=== PATIENT | female | born 1950 | race Caucasian/White ===

== ENCOUNTER → 2018-04-19 22:29 | Outpatient (CLI) | payer OTHER, SELFPAY ==
[2018-04-19 22:39] LABS: Absolute Lymphocyte Count 1.64 X10^3/ul (0.83-4.51); Absolute Neutrophil Count 4.2 X10^3/uL (2.0-7.7); Basophil# 0.05 X10^3/uL; Basophil% 0.7 % (0-1); Eosinophil# 0.15 X10^3/uL; Eosinophils% 2.2 % (0-5); Hematocrit 40.7 % (37-47); Hemoglobin 12.8 g/dl (12.0-15.0); Lymphocyte # 1.64 X10^3/ul (4.0); Mean Corp Hgb Conc 31.4 g/gl (32-36); Mean Corpuscular Volume 92.3 fL (81-99); Mean Platelet Vol. 11.3 fl (6.2-12.0); Monocyte# 0.74 X10^3/uL; Monocyte% 10.8 % (0-10); Neutrophil # 4.24 X10^3/uL (2.7-7.7); Neutrophil % 62.2 % (47-70); Platelet Count 227 K/mm3 (150-450); RBC Distribution Width CV 13.7 % (11.6-14.6); RBC Distribution Width SD 45.2 fl (35.1-43.9); Red Blood Count 4.41 M/mm3 (4.2-5.4); White Blood Count 6.8 K/mm3 (4.4-11.0)
[2018-04-19 22:53] LABS: POSITIVE COUNT NO; POSITIVE DIFFERENTIAL NO; POSITIVE MORPHOLOGY NO
[2018-04-19 22:58] LABS: ALB/GLOB Ratio 0.8 RATIO (0.9-2.4); AST(SGOT) 23 U/L (15-37); Alanine Aminotransfer ALT/SGPT 26 U/L (13-56); Albumin, Serum 3.7 g/dL (3.2-5.0); Alkaline Phosphatase 96 U/L (45-117); Anion Gap 10 (5-15); BUN 29 mg/dL (7-18); BUN/Creat Ratio 27.6 RATIO (10-20); Chloride 103 mmol/L (98-107); Cholesterol 272 mg/dL (200); Creatinine, Serum 1.05 mg/dL (0.55-1.02); EST Glomerular Filtration Rate 55 mL/min (>60); Est Glom Filt Rate - Afr Amer 67 mL/min (>60); Free T3 2.8 pg/mL (2.18-3.98); Globulin 4.4 g/dL (2.2-4.2); Glucose 100 mg/dL (74-106); High Density Lipoprotein 48 mg/dL; Protein, Total 8.1 g/dL (6.4-8.2); Sodium Level 139 mmol/L (136-145); T4 Free Direct 0.93 ng/dL (0.76-1.46); Thyroid Stim Hormone (TSH) 1.89 uIU/mL (0.358-3.74); Triglycerides 231 mg/dL; Very Low Density Lipoprotein 46 mg/dL (5-40)
== END ==
PROVIDERS: Visit Provider Nurse Practitioner
DX: E78.5 Hyperlipidemia, unspecified (principal); R63.5 Abnormal weight gain; F41.9 Anxiety disorder, unspecified
CPT/HCPCS: 80053; 80061; 84439; 84443; 84481; 85025

== ENCOUNTER → 2018-07-30 14:42 | Outpatient (CLI) | payer OTHER, SELFPAY ==
[2018-07-30 12:44] VITALS: BMI 27.6
[2018-07-30 15:09] LABS: Cholesterol 232 mg/dL (200); High Density Lipoprotein 53 mg/dL; Triglycerides 148 mg/dL; Very Low Density Lipoprotein 30 mg/dL (5-40)
== END ==
PROVIDERS: Referring Provider Nurse Practitioner; Visit Provider Nurse Practitioner
DX: E78.2 Mixed hyperlipidemia (principal)
CPT/HCPCS: 80061

== ENCOUNTER → 2019-03-21 | Outpatient (CLI) | payer OTHER, SELFPAY ==
[2019-03-21 16:43] VITALS: BMI 24.6
[2019-03-21 22:10] LABS: Absolute Lymphocyte Count 1.31 X10^3/uL (0.83-4.51); Absolute Neutrophil Count 4.3 X10^3/uL (2.0-7.7); Basophil# 0.05 X10^3/uL; Basophil% 0.8 % (0-1); Eosinophil# 0.15 X10^3/uL; Eosinophils% 2.3 % (0-5); Hematocrit 42.8 % (37-47); Hemoglobin 13.4 g/dL (12.0-15.0); Lymphocyte # 1.31 X10^3/ul (4.0); Lymphocyte % 20.4 % (19-41); Mean Corp Hgb Conc 31.3 g/dL (32-36); Mean Corpuscular Hgb 29.6 pg (27.0-32.0); Mean Corpuscular Volume 94.5 fL (81-99); Mean Platelet Vol. 11.6 fl (6.2-12.0); Monocyte# 0.58 X10^3/uL; NRBC Flagged by Analyzer 0 % (0-5); Neutrophil # 4.32 X10^3/uL (2.7-7.7); Neutrophil % 67.3 % (47-70); Platelet Count 215 K/mm3 (150-450); RBC Distribution Width CV 13.5 % (11.6-14.6); Red Blood Count 4.53 M/mm3 (4.2-5.4); White Blood Count 6.4 K/mm3 (4.4-11.0)
[2019-03-21 22:25] LABS: ALB/GLOB Ratio 0.9 RATIO (0.9-2.4); AST(SGOT) 18 U/L (15-37); Alanine Aminotransfer ALT/SGPT 10 U/L (13-56); Albumin, Serum 3.7 g/dL (3.2-5.0); Alkaline Phosphatase 85 U/L (45-117); Anion Gap 2 (5-15); BUN 33 mg/dL (7-18); BUN/Creat Ratio 29.5 RATIO (10-20); Chloride 105 mmol/L (98-107); Cholesterol 235 mg/dL (200); Creatinine, Serum 1.12 mg/dL (0.55-1.02); EST Glomerular Filtration Rate 51 mL/min (>60); Est Glom Filt Rate - Afr Amer 62 mL/min (>60); Glucose 98 mg/dL (74-106); High Density Lipoprotein 56 mg/dL; Potassium 4.5 mmol/L (3.5-5.1); Protein, Total 7.7 g/dL (6.4-8.2); Sodium Level 139 mmol/L (136-145); Triglycerides 120 mg/dL; Very Low Density Lipoprotein 24 mg/dL (5-40)
== END | disposition home or self-care (01) ==
PROVIDERS: Referring Provider Nurse Practitioner; Visit Provider Nurse Practitioner
DX: I48.91 Unspecified atrial fibrillation (principal)
CPT/HCPCS: 80053; 80061; 85025

== ENCOUNTER → 2019-06-03 00:11 | Outpatient (CLI) | payer MEDICARE, BC, SELFPAY ==
[2019-06-02 21:23] VITALS: BMI 24.6
[2019-06-03 00:58] LABS: Thyroid Stim Hormone (TSH) 1.56 uIU/mL (0.358-3.74)
== END ==
LOC: OLS.AHF 00:11 → LABSPEC 10:45
PROVIDERS: Referring Provider Nurse Practitioner; Visit Provider Nurse Practitioner
DX: E03.9 Hypothyroidism, unspecified (principal)
CPT/HCPCS: 84443

== ENCOUNTER 2020-01-01 18:23 | Emergency (ER) | payer MEDICARE, BC, SELFPAY ==
[2020-01-01 17:36] VITALS: BMI 25.0
[2020-01-01 18:25] VITALS: BP 181/76; PULSE 71; RESP 18; TEMP 36.6; O2SAT 100; BMI 26.1
--- NOTE | 2020-01-01 19:09 | CT_ITS ---
STUDY: CT BRAIN WITHOUT CONTRAST REASON FOR EXAM: Female, 69 years old. DIZZINESS, VERTIGO RADIATION DOSAGE (If Supplied By Facility): CTDIvol = ( 44.99 ) mGy, DLP = ( 748.30 ) mGycm TECHNIQUE: Transaxial CT imaging of the brain was performed without administration of intravenous contrast material. Individualized dose optimization techniques were used for this CT. COMPARISON: No relevant priors. FINDINGS: Normal soft tissue structures. Normal calvarium. Normal size ventricles and extra-axial spaces for the patient''s age. Normal white matter tracts of the cerebral hemispheres. Normal basal ganglia and thalami. Normal brainstem. Normal cerebellum. There is no intracranial hemorrhage. There are no findings of an acute ischemic infarction. Normal visualized paranasal sinuses. CT/Brain/Head without Contrast IMPRESSION: Normal unenhanced CT scan of the brain. Electronically Signed: Gato Scott MD at 20:06 EDT , Service support ,
[2020-01-01 19:20] VITALS: BP 131/81; BP 145/90; BP 146/64; PULSE 65; PULSE 70; PULSE 78
[2020-01-01 19:44] LABS: Absolute Lymphocyte Count 1.01 X10^3/uL (0.83-4.51); Absolute Neutrophil Count 6.9 X10^3/uL (2.0-7.7); Basophil# 0.03 X10^3/uL; Basophil% 0.4 % (0-1); Eosinophil# 0.05 X10^3/uL; Eosinophils% 0.6 % (0-5); Lymphocyte # 1.01 X10^3/ul (4.0); Lymphocyte % 11.9 % (19-41); Mean Corp Hgb Conc 31.1 g/dL (32-36); Mean Corpuscular Hgb 29.2 pg (27.0-32.0); Mean Corpuscular Volume 93.9 fL (81-99); Mean Platelet Vol. 11.9 fl (6.2-12.0); Monocyte# 0.49 X10^3/uL; Monocyte% 5.8 % (0-10); NRBC Flagged by Analyzer 0 % (0-5); Neutrophil # 6.87 X10^3/uL (2.7-7.7); Neutrophil % 80.8 % (47-70); Platelet Count 220 K/mm3 (150-450); RBC Distribution Width CV 13.2 % (11.6-14.6); RBC Distribution Width SD 45.5 fl (35.1-43.9); Red Blood Count 4.79 M/mm3 (4.2-5.4); White Blood Count 8.5 K/mm3 (4.4-11.0)
[2020-01-01 20:03] LABS: ALB/GLOB Ratio 0.8 RATIO (0.9-2.4); AST(SGOT) 19 U/L (15-37); Alanine Aminotransfer ALT/SGPT 17 U/L (13-56); Albumin, Serum 3.8 g/dL (3.2-5.0); Alkaline Phosphatase 93 U/L (45-117); Anion Gap 7 (5-15); BUN 35 mg/dL (7-18); BUN/Creat Ratio 31.2 RATIO (10-20); Calcium,Total 9.3 mg/dL (8.5-10.1); Chloride 106 mmol/L (98-107); Creatinine, Serum 1.12 mg/dL (0.55-1.02); EST Glomerular Filtration Rate 51 mL/min (>60); Est Glom Filt Rate - Afr Amer 62 mL/min (>60); Estimated Creatinine Clearance 44.38 ml/min; Globulin 4.5 g/dL (2.2-4.2); Glucose 144 mg/dL (74-106); Protein, Total 8.3 g/dL (6.4-8.2); Sodium Level 140 mmol/L (136-145)
--- NOTE | 2020-01-01 20:48 | ED.VIS.GEN ---
History of Present Illness Chief Complaint: Dizziness Onset: Today Narrative: Patient is brought to the emergency room for the evaluation of vertigo. Patient states she had this in the past when she was working for [employer]. She had an episode of it on the of which she states that the room was spinning. She had it again this morning when she went to get up out of bed. She states that she is feeling better right now but she went and saw primary care physician who noticed that she had miosis of the right eye and wanted her to come to the emergency department to be seen. Patient has no headache. She denies any visual changes. Specifically visual field cuts or blurry vision or double vision. She denies putting anything in the eye or any new medications. She has no temporal artery tenderness. The eyes not injected. No arm or leg symptoms. Past Medical History - Allergies and Home Meds Allergies/Adverse Reactions: Allergies diazepam [From Valium] Allergy (Verified 01/01/20 18:28) Other HALLUCINATE morphine Allergy (Verified 01/01/20 18:28) Other HALLUCINATION rosuvastatin calcium [From Crestor] Allergy (Verified 01/01/20 18:28) Other MUSCLE PAIN Primary Care Physician: Cory Rosales MD [STAFF PHYSICIAN] - (if you want to see opthamology) Flavio Dodd MD [STAFF PHYSICIAN] - (for ENT ) Smoking Status: Never smoker Review of Systems General: Denies: Chills, Fever, Sweats Eyes: Denies: Visual changes - left, Visual changes - right, Visual changes - bilaterally, Blurred vision - left, Blurred vision - right, Blurred Vision - bilaterally, Diplopia ENT: Denies: Rhinorrhea, Sore throat Cardiovascular: Denies: Chest pain, Palpitations Respiratory: Denies: Dyspnea, Cough, Dyspnea on exertion Gastrointestinal: Denies: Abdominal pain, Nausea, Vomiting, Diarrhea, Melena, Hematochezia Genitourinary: Denies: Dysuria, Hematuria, Frequency Musculoskeletal: Denies: Back pain, Extremity Pain Skin: Denies: Rash, Wounds Neurological: Reports: - - Sensation of room spinning now resolved. Denies: Headache, Weakness, Numbness Physical Exam Vital Signs/Narrative: Vital Signs Temp Pulse Pulse Pulse Pulse Resp BP 01/01/20 19:20 65 70 78 01/01/20 18:25 97.9 F 71 18 181/76 H BP BP BP Pulse Ox 01/01/20 19:20 146/64 H 145/90 H 131/81 H 01/01/20 18:25 100 Inital Vital Signs reviewed: Yes General: Well nourished, Well developed, No Acute Distress Head: Normocephalic, Atraumatic Eyes: Perrl, EOMI, - - The left pupil appears to be 4 mm and reactive. The right eye appears to be 2 mm and reactive. ENT: Moist mucous membranes, No rhinorrhea Neck: Supple, Nontender Cardiovascular: Regular rate, Regular rhythm, No murmurs Respiratory: No distress, CTA bilaterally, Chest nontender Abdomen: Soft, Nontender, Nondistended, Normal bowel sounds Back: Nontender, Normal Inspection Extremities: Nontender, No edema Skin: Normal color, No rash Neurological: Alert, Oriented x3, Cranial nerves II-XII grossly intact, Normal Strength, Normal Sensation Psychological: Normal affect, Normal Mood Diagnostic/Tx/Re-eval Clinical Impression(s) from Imaging Studies Brain CT 01/01/20 19:09 IMPRESSION: Normal unenhanced CT scan of the brain. Electronically Signed: Gato Scott MD at 20:06 EDT , Service support , Laboratory Last Values WBC 8.5 K/mm3 (4.4-11.0) 01/01/20 19:28 RBC 4.79 M/mm3 (4.2-5.4) 01/01/20 19:28 Hgb 14.0 g/dL (12.0-15.0) 01/01/20 19:28 Hct 45.0 % (37-47) 01/01/20 19:28 MCV 93.9 fL (81-99) 01/01/20 19:28 MCH 29.2 pg (27.0-32.0) 01/01/20 19:28 MCHC 31.1 g/dL (32-36) L 01/01/20 19:28 RDW Std Deviation 45.5 fl (35.1-43.9) H 01/01/20 19:28 RDW Coeff of [place] 13.2 % (11.6-14.6) 01/01/20 19:28 Plt Count 220 K/mm3 (150-450) 01/01/20 19: MPV 11.9 fl (6.2-12.0) 01/01/20 19:28 Immature Gran % (Auto) 0.500 % (0.0-0.9) 01/01/20: Neut % (Auto) 80.8 % (47-70) H 01/01/20:28 Lymph % (Auto) 11.9 % (19-41) L 01/01/20:28 [place] % (Auto) 5.8 % (0-10) 01/01/20:28 Eos % (Auto) 0.6 % (0-5) 01/01/20: Baso % (Auto) 0.4 % (0-1) 01/01/20: Absolute Neuts (auto) 6.9 X10^3/uL (2.0-7.7) 01/01/20: Absolute Lymphs (auto) 1.01 X10^3/uL (0.83-4.51) 01/01/20 19: Nucleated RBC % 0 % (0-5) 01/01/20 19: Sodium 140 mmol/L (136-145) 01/01/20: Potassium 4.0 mmol/L (3.5-5.1) 01/01/20: Chloride 106 mmol/L (98-107) 01/01/20: Carbon Dioxide 27.0 mmol/L (21.0-32.0) 01/01/20:28 Anion Gap 7 (5-15) 01/01/20 19:28 BUN 35 mg/dL (7-18) H 01/01/20 19:28 Creatinine 1.12 mg/dL (0.55-1.02) H 01/01/20 19:28 Estim Creat Clear Calc 44.38 ml/min 01/01/20: Est GFR (MDRD) Af Amer 62 mL/min (>60) 01/01/20: Est GFR (MDRD) Non-Af 51 mL/min (>60) L 01/01/20: BUN/Creatinine Ratio 31.2 RATIO (10-20) H 01/01/20 19:28 Glucose 144 mg/dL (74-106) H 01/01/20 19:28 Calcium 9.3 mg/dL (8.5-10.1) 01/01/20 19:28 Total Bilirubin 0.20 mg/dL (0.20-1.00) 01/01/20 19:28 AST 19 U/L (15-37) 01/01/20 19:28 ALT 17 U/L (13-56) 01/01/20 19:28 Alkaline Phosphatase 93 U/L (45-117) 01/01/20 19:28 Total Protein 8.3 g/dL (6.4-8.2) H 01/01/20 19:28 Albumin 3.8 g/dL (3.2-5.0) 01/01/20 19: Globulin 4.5 g/dL (2.2-4.2) H 01/01/20 19:28 Albumin/Globulin Ratio 0.8 RATIO (0.9-2.4) L 01/01/20 19:28 - Medical Decision Making CT the brain was normal. CBC and BMP are normal. Patient is currently asymptomatic. And have her follow-up with ophthalmology if her symptoms do not resolve. She can follow-up with ENT for the vertigo. She states she cannot take Valium. She has been reluctant to take meclizine. ED Disposition - Plan for ED Patient: Disposition: Home or Assisted Living Diagnosis: Vertigo, Miosis Instructions: ED Vertigo Unspecified Prescriptions: Ondansetron [Zofran Odt] 4 mg PO Q6H PRN PRN #20 tab PRN Reason: Nausea Transmission Status: Received by [id number] Referrals: Flavio Dodd MD [STAFF PHYSICIAN] - (for ENT ) Cory Rosales MD [STAFF PHYSICIAN] - (if you want to see opthamology)
[2020-01-01 20:50] VITALS: BP 151/63; PULSE 63; RESP 16; O2SAT 97
== END 2020-01-01 20:52 | disposition home or self-care (01) ==
PROVIDERS: Emergency Provider Emergency Medicine; PCP Nurse Practitioner
DX: R42 Dizziness and giddiness (principal); H57.03 Miosis; Z79.82 Long term (current) use of aspirin; Z79.899 Other long term (current) drug therapy
CPT/HCPCS: 70450; 80053; 85025; 99285; A4216

== ENCOUNTER → 2021-04-28 | Outpatient (CLI) | payer MEDICARE, BC, SELFPAY ==
[2021-04-28 22:15] LABS: Absolute Lymphocyte Count 1.44 X10^3/uL (0.83-4.51); Basophil# 0.04 X10^3/uL; Basophil% 0.8 % (0-1); Eosinophil# 0.14 X10^3/uL; Eosinophils% 2.7 % (0-5); Hematocrit 42.1 % (37-47); Hemoglobin 13.1 g/dL (12.0-15.0); Lymphocyte # 1.44 X10^3/ul (0.83-4.51); Lymphocyte % 28.1 % (19-41); Mean Corp Hgb Conc 31.1 g/dL (32-36); Mean Corpuscular Hgb 29.3 pg (27.0-32.0); Mean Corpuscular Volume 94.2 fL (81-99); Mean Platelet Vol. 11.5 fl (6.2-12.0); Monocyte# 0.52 X10^3/uL; Monocyte% 10.2 % (0-10); NRBC Flagged by Analyzer 0 % (0-5); Neutrophil # 2.97 X10^3/uL (2.7-7.7); Platelet Count 221 K/mm3 (150-450); RBC Distribution Width CV 13.1 % (11.6-14.6); RBC Distribution Width SD 44.8 fl (35.1-43.9); Red Blood Count 4.47 M/mm3 (4.2-5.4); White Blood Count 5.1 K/mm3 (4.4-11.0)
[2021-04-28 22:46] LABS: ALB/GLOB Ratio 0.9 RATIO (0.9-2.4); AST(SGOT) 20 U/L (15-37); Alanine Aminotransfer ALT/SGPT 11 U/L (13-56); Albumin, Serum 3.6 g/dL (3.2-5.0); Alkaline Phosphatase 97 U/L (45-117); Anion Gap 9 (5-15); BUN 24 mg/dL (7-18); BUN/Creat Ratio 19.8 RATIO (10-20); Chloride 104 mmol/L (98-107); Cholesterol 236 mg/dL (200); Creatinine, Serum 1.21 mg/dL (0.55-1.02); EST Glomerular Filtration Rate 47 mL/min (>60); Est Glom Filt Rate - Afr Amer 56 mL/min (>60); Globulin 4.2 g/dL (2.2-4.2); Glucose 106 mg/dL (74-106); High Density Lipoprotein 57 mg/dL; Potassium 4.3 mmol/L (3.5-5.1); Protein, Total 7.8 g/dL (6.4-8.2); Sodium Level 140 mmol/L (136-145); Triglycerides 107 mg/dL; Very Low Density Lipoprotein 21 mg/dL (5-40)
== END | disposition home or self-care (01) ==
PROVIDERS: PCP Nurse Practitioner; Visit Provider Nurse Practitioner
DX: I10 Essential (primary) hypertension (principal)
CPT/HCPCS: 80053; 80061; 85025

== ENCOUNTER → 2022-05-28 | Outpatient (CLI) | payer MEDICARE, BC, SELFPAY ==
[2022-05-28 22:41] LABS: Absolute Lymphocyte Count 1.17 X10^3/uL (0.83-4.51); Absolute Neutrophil Count 4.7 X10^3/uL (2.0-7.7); Basophil# 0.04 X10^3/uL; Basophil% 0.6 % (0-1); Eosinophil# 0.16 X10^3/uL; Eosinophils% 2.4 % (0-5); Hemoglobin 14.3 g/dL (12.0-15.0); Lymphocyte # 1.17 X10^3/ul (0.83-4.51); Lymphocyte % 17.9 % (19-41); Mean Corp Hgb Conc 31.8 g/dL (32-36); Mean Corpuscular Hgb 29.5 pg (27.0-32.0); Monocyte# 0.52 X10^3/uL; Monocyte% 7.9 % (0-10); NRBC Flagged by Analyzer 0 % (0-5); Neutrophil # 4.65 X10^3/uL (2.7-7.7); Platelet Count 231 K/mm3 (150-450); RBC Distribution Width CV 12.7 % (11.6-14.6); RBC Distribution Width SD 43.8 fl (35.1-43.9); Red Blood Count 4.84 M/mm3 (4.2-5.4); White Blood Count 6.6 K/mm3 (4.4-11.0)
[2022-05-28 22:58] LABS: ALB/GLOB Ratio 0.9 RATIO (0.9-2.4); AST(SGOT) 20 U/L (15-37); Alanine Aminotransfer ALT/SGPT 13 U/L (13-56); Alkaline Phosphatase 110 U/L (45-117); Anion Gap 6 (5-15); BUN 19 mg/dL (7-18); BUN/Creat Ratio 17.6 RATIO (10-20); Calcium,Total 9.5 mg/dL (8.5-10.1); Chloride 105 mmol/L (98-107); Cholesterol 223 mg/dL (200); Creatinine, Serum 1.08 mg/dL (0.55-1.02); EST Glomerular Filtration Rate 53 mL/min (>60); Est Glom Filt Rate - Afr Amer 64 mL/min (>60); Globulin 4.3 g/dL (2.2-4.2); Glucose 95 mg/dL (74-106); High Density Lipoprotein 50 mg/dL; Potassium 4.1 mmol/L (3.5-5.1); Protein, Total 8.3 g/dL (6.4-8.2); Sodium Level 139 mmol/L (136-145); Triglycerides 161 mg/dL; Very Low Density Lipoprotein 32 mg/dL (5-40)
[2022-06-02 16:04] LABS: Vitamin D 1,25-Dihydroxy 57.7 pg/mL (24.8-81.5)
== END | disposition home or self-care (01) ==
PROVIDERS: PCP Nurse Practitioner; Visit Provider Nurse Practitioner
DX: F41.1 Generalized anxiety disorder (principal); E55.9 Vitamin D deficiency, unspecified; B02.9 Zoster without complications; I10 Essential (primary) hypertension
CPT/HCPCS: 80053; 80061; 82652; 85025

== ENCOUNTER → 2022-12-23 | Outpatient (CLI) | payer MEDICARE, BC, SELFPAY ==
[2022-12-23 20:45] LABS: Absolute Neutrophil Count 4.6 X10^3/uL (2.0-7.7); Basophil# 0.06 X10^3/uL; Basophil% 0.8 % (0-1); Eosinophil# 0.14 X10^3/uL; Eosinophils% 1.9 % (0-5); Hematocrit 42.3 % (37-47); Hemoglobin 13.1 g/dL (12.0-15.0); Lymphocyte % 25.4 % (19-41); Mean Corpuscular Hgb 29.8 pg (27.0-32.0); Mean Corpuscular Volume 96.1 fL (81-99); Mean Platelet Vol. 11.5 fl (6.2-12.0); Monocyte# 0.74 X10^3/uL; Monocyte% 9.9 % (0-10); NRBC Flagged by Analyzer 0 % (0-5); Neutrophil # 4.62 X10^3/uL (2.7-7.7); Neutrophil % 61.9 % (47-70); Platelet Count 229 K/mm3 (150-450); RBC Distribution Width CV 12.7 % (11.6-14.6); RBC Distribution Width SD 45.1 fl (35.1-43.9); White Blood Count 7.5 K/mm3 (4.4-11.0)
[2022-12-25 12:09] LABS: Lyme Scn Total Ab w/Rflx Negative (Negative)
== END | disposition home or self-care (01) ==
PROVIDERS: PCP Nurse Practitioner; Visit Provider Nurse Practitioner
DX: T07.XXXA Unspecified multiple injuries, initial encounter (principal); L08.9 Local infection of the skin and subcutaneous tissue, unspecified; W57.XXXA Bitten or stung by nonvenomous insect and other nonvenomous arthropods, initial encounter
CPT/HCPCS: 85025; 86618

== ENCOUNTER → 2023-04-23 | Outpatient (CLI) | payer MEDICARE, BC, SELFPAY ==
[2023-04-23 20:53] LABS: Uric Acid 5.6 mg/dL (2.6-6.0)
== END | disposition home or self-care (01) ==
PROVIDERS: PCP Nurse Practitioner; Visit Provider Nurse Practitioner
DX: M10.9 Gout, unspecified (principal)
CPT/HCPCS: 84550

== ENCOUNTER → 2023-07-16 | Outpatient (CLI) | payer MEDICARE, BC, SELFPAY ==
[2023-07-16 20:25] LABS: Absolute Lymphocyte Count 1.32 X10^3/uL (0.83-4.51); Absolute Neutrophil Count 4.3 X10^3/uL (2.0-7.7); Basophil# 0.05 X10^3/uL; Basophil% 0.8 % (0-1); Eosinophil# 0.06 X10^3/uL; Hematocrit 44.7 % (37-47); Hemoglobin 13.9 g/dL (12.0-15.0); Lymphocyte # 1.32 X10^3/ul (0.83-4.51); Lymphocyte % 21.1 % (19-41); Mean Corp Hgb Conc 31.1 g/dL (32-36); Mean Corpuscular Hgb 29.1 pg (27.0-32.0); Mean Corpuscular Volume 93.5 fL (81-99); Monocyte# 0.55 X10^3/uL; Monocyte% 8.8 % (0-10); NRBC Flagged by Analyzer 0 % (0-5); Neutrophil # 4.27 X10^3/uL (2.7-7.7); Neutrophil % 68.1 % (47-70); Platelet Count 235 K/mm3 (150-450); RBC Distribution Width CV 13.2 % (11.6-14.6); Red Blood Count 4.78 M/mm3 (4.2-5.4); White Blood Count 6.3 K/mm3 (4.4-11.0)
[2023-07-16 20:39] LABS: ALB/GLOB Ratio 1.1 RATIO (0.9-2.4); AST(SGOT) 20 U/L (15-37); Alanine Aminotransfer ALT/SGPT 10 U/L (13-56); Albumin, Serum 4.1 g/dL (3.2-5.0); Alkaline Phosphatase 94 U/L (45-117); Anion Gap 5 (5-15); BUN 17 mg/dL (7-18); BUN/Creat Ratio 16.3 RATIO (10-20); Calcium,Total 9.4 mg/dL (8.5-10.1); Chloride 106 mmol/L (98-107); Cholesterol 248 mg/dL (200); Creatinine, Serum 1.04 mg/dL (0.55-1.02); EST Glomerular Filtration Rate 55 mL/min (>60); Est Glom Filt Rate - Afr Amer 67 mL/min (>60); Globulin 3.9 g/dL (2.2-4.2); Glucose 113 mg/dL (74-106); High Density Lipoprotein 61 mg/dL; Potassium 4.9 mmol/L (3.5-5.1); Sodium Level 142 mmol/L (136-145); Triglycerides 160 mg/dL; Very Low Density Lipoprotein 32 mg/dL (5-40)
== END | disposition home or self-care (01) ==
PROVIDERS: PCP Nurse Practitioner; Referring Provider Nurse Practitioner; Visit Provider Nurse Practitioner
DX: G20.A1 Parkinson's disease without dyskinesia, without mention of fluctuations (principal); I48.0 Paroxysmal atrial fibrillation; F41.9 Anxiety disorder, unspecified; E03.9 Hypothyroidism, unspecified
CPT/HCPCS: 80053; 80061; 85025